=== PATIENT | male | born 1955 | race Asian ===

== ENCOUNTER 2020-10-10 18:30 | Emergency (ER) | payer OTHER, SELFPAY ==
--- NOTE | ~2020-10-10 | XR_ITS ---
XR chest 2V DATE: 10/10/2020 19:01 INDICATION: Midsternal chest pain for one hour TECHNIQUE: PA and lateral views COMPARISON: None FINDINGS: Normal heart size. Aortic arch calcification and mild aortic unfolding. No hilar or mediast inal enlargement. No pulmonary infiltrate or consolidation, pleural effusion or pulmonary vascular congestion or pneumo thorax. Diffuse osteopenia. Mild degenerative spurring of the thoracic spine. IMPRESSION: No active cardiopulmonary disease Aortic atherosclerosis Reviewed, dictated and finalized at location A.
--- NOTE | 2020-10-10 18:39 | ECG_ITS ---
Measurements Intervals [place] Rate: 74 P: 44 AL: 150 QRS: 5 QRSD: 84 T: 46 QT: 374 QTc: 416 Interpretive Statements SINUS RHYTHM INCOMPLETE RIGHT BUNDLE BRANCH BLOCK MINIMAL Q WAVES- HIGH LATERAL LEADS BORDERLINE ECG Electronically Signed On 10-10-2020 19:40:30 CDT by Bay Guillen D.O.
[2020-10-10 18:49] VITALS: BP 122/61; PULSE 74; RESP 18; TEMP 36.9; O2SAT 99
[2020-10-10 19:02] LABS: Basophils Percent Auto 0.5 % (0.2-1.2); Eosinophils Absolute Auto 0.2 K/mm3 (0-0.3); Eosinophils Percent Auto 2.8 % (0-4.4); Hematocrit 39.2 % (42.0-52.0); Hemoglobin 12.4 g/dL (14.0-18.0); Immature Granulocyte Absolute 0.02 K/mm3 (0.00-0.031); Immature Granulocyte Percent A 0.3 % (0-0.5); Lymphocytes Absolute Auto 2.73 K/mm3 (0.9-3.2); Lymphocytes Percent Auto 35.2 % (18.3-44.2); Mean Corpuscular HGB Conc 31.6 g/dl (32-36); Mean Corpuscular Hemoglobin 26.2 pg (26-34); Mean Corpuscular Volume 82.7 fl (80-100); Mean Platelet Volume 9.4 fl (7.4-10.4); Monocytes Absolute Auto 0.7 K/mm3 (0.1-0.6); Monocytes Percent Auto 9.1 % (2.6-8.5); Neutrophils Percent Auto 52.1 % (45.5-73.1); Platelet Count Result 268 k/mm3 (150-375); Red Blood Count 4.74 M/mm3 (4.6-6.20); Red Cell Distribution Width 15.3 % (11.5-14.5); White Blood Count 7.8 K/mm3 (4.5-10.0)
[2020-10-10 19:12] LABS: Anion Gap 10 mmol/L (8-16); Blood Urea Nitrogen 18 mg/dL (9-20); Calcium 9.3 mg/dL (8.4-10.2); Carbon Dioxide 24 mmol/L (22-30); Chloride 103 mmol/L (98-107); Estimated CRCL calculation 82 ml/min; Estimated Glomerular Filt Rate > 60; Glucose 157 mg/dL (75-110); Potassium 4.1 mmol/L (3.4-5.0); Sodium 137 mmol/L (137-145)
[2020-10-10 19:24] LABS: Troponin I < 0.012 ng/mL (0.000-0.034)
[2020-10-10 21:55] VITALS: BP 107/64; PULSE 66; RESP 16; O2SAT 99
[2020-10-10 22:19] LABS: Prothrombin Time 13.5 Seconds (11.1-14.7)
[2020-10-10 22:22] LABS: Alanine Aminotransferase 28 U/L (4-50); Albumin Level 4.5 g/dL (3.5-5.1); Alkaline Phosphatase 78 U/L (38-126); Aspartate Amino Transferase 49 U/L (17-59); Bilirubin,Total 0.3 mg/dL (0.2-1.3); Lipase 235 U/L (23-300)
--- NOTE | 2020-10-10 22:26 | ED.GENADULT ---
HPI - General Adult General Chief complaint: Chest Pain Stated complaint: chest pain Time Seen by Provider: 10/10/20 21:33 History of Present Illness HPI narrative: Patient 65-year-old gentleman who presents the emergency department with chief complaint of chest discomfort. The patient states that he had come home from work was taking a hot shower and reports that he had some heaviness in his mid chest. Patient states that during that time he started salivating denies shortness of breath denied radiation denied back pain patient reports that he does have remote history of a positive stress test that was followed by a cardiac catheterization that showed that he had some slight blockages but this was treated from a medical management standpoint patient states that he has subsequently had a repeat stress test that was actually improved from his previous studies patient states that currently he feels back to normal right now Related Data Allergies Allergy/AdvReac Type Severity Reaction Status Date / Time clopidogrel Allergy Unknown RASH Verified 11/22/18 10:22 Review of Systems Review of Systems: Narrative: A 10 system review of systems was completed on the patient and is negative except for what is stated in the HPI. Nursing and ancillary documentation was reviewed. 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 HEAD: Normocephalic, atraumatic. EYES: PERRLA and EOMI. ENT: Nares clear, no rhinorrhea or epistaxis. Mucous membranes moist. NECK: Supple. CHEST: Clear to auscultation. No respiratory distress. HEART: Regular rate and rhythm. No murmur heard. Normal peripheral pulses. ABDOMEN: Soft, nontender, nondistended, normal active bowel sounds. EXTREMITIES: Normal range of motion. No edema. SKIN: Warm, dry, no rash. NEURO: No focal deficits. Alert and oriented x3. PSYCH: Normal mood and affect. Course Vital Signs Vital signs: Vital Signs Temperature 36.9 C 10/10/20 18:49 Pulse Rate 74 10/10/20 18:49 Respiratory Rate 18 10/10/20 18:49 Blood Pressure 122/61 10/10/20 18:49 Pulse Oximetry 99 10/10/20 18:49 Temperature 36.9 C 10/10/20 18:49 Pulse Rate 66 10/10/20 21:55 Respiratory Rate 16 10/10/20 21:55 Blood Pressure 107/64 10/10/20 21:55 Pulse Oximetry 99 10/10/20 21:55 Medical Decision Making Vital Signs Vital Signs: Vital Signs Temperature 36.9 C 10/10/20 18:49 Pulse Rate 74 10/10/20 18:49 Respiratory Rate 18 10/10/20 18:49 Blood Pressure 122/61 10/10/20 18:49 Pulse Oximetry 99 10/10/20 18:49 Temperature 36.9 C 10/10/20 18:49 Pulse Rate 66 10/10/20 21:55 Respiratory Rate 16 10/10/20 21:55 Blood Pressure 107/64 10/10/20 21:55 Pulse Oximetry 99 10/10/20 21:55 Lab Data Result diagrams: 10/10/20 18:55 10/10/20 18:55 Labs: Lab Results 10/10/20 10/10/20 10/10/20 Range/Units 18:55 18:55 21:59 WBC 7.8 (4.5-10.0) K/mm3 RBC 4.74 (4.6-6.20) M/mm3 Hgb 12.4 L (14.0-18.0) g/dL Hct 39.2 L (42.0-52.0) % MCV 82.7 (80-100) fl MCH 26.2 (26-34) pg MCHC 31.6 L (32-36) g/dl RDW 15.3 H (11.5-14.5) % Plt Count 268 (150-375) k/mm3 MPV 9.4 (7.4-10.4) fl Immature Gran % (Auto) 0.3 (0-0.5) % Neut % (Auto) 52.1 (45.5-73.1) % Lymph % (Auto) 35.2 (18.3-44.2) % [place] % (Auto) 9.1 H (2.6-8.5) % Eos % (Auto) 2.8 (0-4.4) % Baso % (Auto) 0.5 (0.2-1.2) % Lymph # (Auto) 2.73 (0.9-3.2) K/mm3 [place] # (Auto) 0.7 H (0.1-0.6) K/mm3 Eos # (Auto) 0.2 (0-0.3) K/mm3 Baso # (Auto) 0.0 (0.0-0.1) K/mm3 Abs Imm
[2020-10-10 22:31] LABS: Troponin I < 0.012 ng/mL (0.000-0.034)
[2020-10-10 22:45] VITALS: BP 115/65; PULSE 78; RESP 16; O2SAT 98
== END 2020-10-10 22:45 | disposition home or self-care (01) ==
PROVIDERS: Family Medicine; Emergency Provider Emergency Medicine
DX: R07.89 Other chest pain (principal); I25.10 Atherosclerotic heart disease of native coronary artery without angina pectoris; I45.10 Unspecified right bundle-branch block
CPT/HCPCS: 36415; 71046; 80048; 80076; 83690; 84484; 85025; 85610; 85730; 93005; 99284

== ENCOUNTER 2021-11-30 13:52 | Observation (INO) | payer OTHER, SELFPAY ==
[2021-11-30] VITALS (23 sets, daily range): BP systolic 94–139; BP diastolic 58–76; PULSE 66–93; RESP 12–20; TEMP 36.1–36.2; O2SAT 99–100; BMI 22.1; BMI 22.2
--- NOTE | ~2021-11-30 | XR_ITS ---
EXAMINATION: XR chest 2V Exam Date/Time: 11/30/2021 14:30 CDT HISTORY: chest pain Comparison: 10/10/2020. RESULT: Lines, tubes, and devices: None. Lungs and pleura: Clear. Cardiomediastinal silhouette: Stable. Other: No acute osseous or upper abdominal finding. IMPRESSION: No acute cardiopulmonary process. Reviewed, dictated and finalized at location K.
--- NOTE | ~2021-11-30 | NM_ITS ---
EXAMINATION: NM akin stress w perfusion DATE: 12/02/2021 12:22 INDICATION: Chest pain. TECHNIQUE: Rest images were obtained following intravenous administration of 10.3 mCi Tc99m tetrofosm in (Myoview). The patient was infused intravenously with Lexiscan (regadenoson). Then, 33.9 mCi Tc99m tetrofosmin (Myoview) was administered intravenously, and stress images were obtained. Data was albina nstructed into short axis and horizontal and vertical long axis SPECT images. Gated SPECT images were also obtained. COMPARISON: CT abdomen and pelvis 10/30/2018 FINDINGS: There is no definite reversible or fixed perfusion abnormality to suggest ischemia or infar ction. There is no segmental wall motion abnormality. Left ventricular ejection fraction measures > 70%. IMPRESSION: 1. No definite ischemia or infarct. 2. Normal left ventricular ejection fraction measuring >70%. Reviewed, dictated and finalized at location A.
--- NOTE | 2021-11-30 13:53 | ECG_ITS ---
Measurements Intervals [employer] Rate: 85 P: 52 UT: 140 QRS: 22 QRSD: 88 T: 60 QT: 355 QTc: 422 Interpretive Statements SINUS RHYTHM MINOR ST SEGMENT ABNORMALITY NO PREVIOUS ECG AVAILABLE FOR COMPARISON Electronically Signed On 12-01-2021 8:17:39 CDT by Damian Hansen M.D.
[2021-11-30 14:17] LABS: Basophils Percent Auto 0.5 % (0.2-1.2); Eosinophils Absolute Auto 0.1 K/mm3 (0-0.3); Eosinophils Percent Auto 1.7 % (0-4.4); Hematocrit 37.8 % (42.0-52.0); Immature Granulocyte Absolute 0.02 K/mm3 (0.00-0.031); Immature Granulocyte Percent A 0.3 % (0-0.5); Lymphocytes Absolute Auto 2.14 K/mm3 (0.9-3.2); Lymphocytes Percent Auto 32.5 % (18.3-44.2); Mean Corpuscular HGB Conc 31.7 g/dl (32-36); Mean Corpuscular Hemoglobin 27.4 pg (26-34); Mean Corpuscular Volume 86.3 fl (80-100); Mean Platelet Volume 8.9 fl (7.4-10.4); Monocytes Absolute Auto 0.8 K/mm3 (0.1-0.6); Monocytes Percent Auto 12.7 % (2.6-8.5); Neutrophils Absolute Auto 3.5 K/mm3 (1.3-6.7); Neutrophils Percent Auto 52.3 % (45.5-73.1); Platelet Count Result 327 k/mm3 (150-375); Red Blood Count 4.38 M/mm3 (4.6-6.20); Red Cell Distribution Width 13.8 % (11.5-14.5); White Blood Count 6.6 K/mm3 (4.5-10.0)
[2021-11-30 14:27] LABS: INR 1.1; Prothrombin Time 13.6 Seconds (11.1-14.7)
[2021-11-30 14:28] LABS: Alanine Aminotransferase 20 U/L (6-50); Albumin Level 4.3 g/dL (3.5-5.1); Alkaline Phosphatase 90 U/L (38-126); Anion Gap 10 mmol/L (8-16); Aspartate Amino Transferase 22 U/L (17-59); Bilirubin,Total 0.5 mg/dL (0.2-1.3); Blood Urea Nitrogen 11 mg/dL (9-20); Calcium 9.3 mg/dL (8.4-10.2); Carbon Dioxide 26 mmol/L (22-30); Chloride 102 mmol/L (98-107); Estimated CRCL calculation 72 ml/min; Estimated Glomerular Filt Rate > 60; Glucose 134 mg/dL (65-110); Lipase 242 U/L (23-300); Partial Thromboplastin Time 30.8 SECONDS (22.3-36.8); Potassium 3.9 mmol/L (3.4-5.0); Sodium 138 mmol/L (137-145)
[2021-11-30 14:37] LABS: Troponin I < 0.012 ng/mL (0.000-0.034)
--- NOTE | 2021-11-30 15:08 | ED.GENADULT ---
HPI - General Adult General Chief complaint: Chest Pain Stated complaint: chest pain Time Seen by Provider: 11/30/21 14:01 History of Present Illness HPI narrative: 66-year-old male with a past medical history of CAD, DM 2, dyslipidemia, HTN presents to our department with exertional chest pain and pressure. Patient states that when he walked up the stairs this morning he began to feel pain and pressure substernally and in his anterior chest wall. There was only modest improvement when he sat down to rest and he still feels a 2 out of 10 pain at the time of my evaluation. Patient had a positive stress test and positive cardiac cath in 2005. He subsequently had a second cath in 2014 which was normal and he feels that collateral circulation improved the CAD he initially was diagnosed with he has not had any further provocative testing for the past 6 years. Related Data Home Medications Medication Instructions Recorded Confirmed amlodipine 10 mg tablet 10 mg PO QPM 12/26/20 12/01/21 aspirin 81 mg tablet,delayed 81 mg PO QPM 12/26/20 12/01/21 release atorvastatin 40 mg tablet 40 mg PO QPM 12/26/20 12/01/21 famotidine 40 mg tablet 40 mg PO DAILY 12/26/20 11/30/21 magnesium 250 mg tablet 250 mg PO DAILY 12/26/20 11/30/21 Allergies Allergy/AdvReac Type Severity Reaction Status Date / Time clopidogrel [From Plavix] Allergy Rash Verified 11/30/21 17:38 Review of Systems Review of Systems: CONSTITUTIONAL: Denies fever, chills, or sweats. EYES: Denies visual changes, redness, or discharge. ENT: Denies rhinorrhea, congestion, sore throat, or otalgia. CARDIOVASCULAR: Denies chest pain, palpitations, or edema. RESPIRATORY: Denies cough or dyspnea. GASTROINTESTINAL: Denies abdominal pain, nausea, vomiting, or diarrhea. GENITOURINARY: Denies dysuria or hematuria. SKIN: Denies rash or itching. MUSCULOSKELETAL: Denies back pain, joint pain, or myalgia. NEUROLOGIC: Denies headache, numbness, or weakness. PSYCHIATRIC: Denies anxiety or depression. [facility] Past Medical History Medical History (Updated 11/30/21 @ 22:02 by Romi Kimbrough PA-C) Chronic anemia Coronary artery disease Stress echo in 2005 showed a small area of hypokinesis. Subsequent cardiac catheterization showed 85% stenosis of a terminal branch which was treated with aggressive medical management. Dyslipidemia Gastroesophageal reflux disease Hypertension Type 2 diabetes mellitus Surgical History Surgical History (Updated 11/30/21 @ 22:09 by Romi Kimbrough PA-C) History of cardiac catheterization (2005) History of colonoscopy with polypectomy History of esophagogastroduodenoscopy Status post scrotal varicocelectomy Family History Family History Sibling Diabetes mellitus Renal cell cancer Sibling History of angioplasty Cerebrovascular accident Father Sudden Social History Social History Social History: Surrogate medical decision maker: Perla Alamo, spouse. Code status: Full code. Smoking status: Never smoker Second hand tobacco smoke exposure: Yes Alcohol intake: never Substance use: never Additional living arrangements comments: Lives in [place] with spouse and children. 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 care concerns: No Exam Narrative: GENERAL: Well-appearing, well-nourished, and in no acute distress. HEAD: Normocephalic, atraumatic. EYES: PERRLA and EOMI. ENT: Nares clear, no rhinorrhea or epistaxis. Mucous membranes moist. NECK: Supple. CHEST: Clear to auscultation. No respiratory distress. HEART: Regular rate and rhythm. No murmur heard. Normal peripheral pulses. ABDOMEN: Soft, nontender, nondistended, normal active bowel sounds. EXTREMITIES: Normal range of motion. No edema. SKIN: Warm, dry, no rash. NEURO: No focal deficits. Alert and oriented x3. P
[2021-11-30] MEDS: ASPIRIN 81 MG CHEWABLE TABLET 324 MG PO (15:18)
[2021-11-30] MEDS: NITROGLYCERIN SL 0.4 MG TABLET SUBLINGUAL (15:19)
--- NOTE | 2021-11-30 15:29 | PC.NURSE ---
pt received Nitro 0.4 x1 denied CP
--- NOTE | 2021-11-30 16:19 | ECG_ITS ---
Measurements Intervals [place] Rate: 81 P: 37 WI: 144 QRS: 5 QRSD: 83 T: 44 QT: 364 QTc: 425 Interpretive Statements SINUS RHYTHM NORMAL ECG COMPARED TO ECG 11/30/2021 13:59:33 NO SIGNIFICANT CHANGES Electronically Signed On 12-02-2021 14:06:16 CDT by Damian Hansen M.D.
--- NOTE | 2021-11-30 16:25 | PM.IMHP ---
H&P: HPI History of Present Illness Date/Time: 11/30/21 16:25 Chief Complaint: Chest pain. 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 Not long prior to arrival while walking up a flight of steps he developed nonradiating, pressure-like discomfort in the middle part of his chest which intensified when walking up a subsequent set of steps about 5 minutes later. He rates the pain 6-7/10 and it resolved after receiving 1 sublingual nitroglycerin tablet in the emergency department. He denies significant associated symptoms, specifically denying dizziness, sweats, nausea, vomiting, and shortness of breath. At the time my evaluation he is resting comfortably and has no active discomfort. He had an abnormal stress echo in 2005 which showed a small area of hypokinesis for which he had a cardiac catheterization which showed small-vessel disease with 85% stenosis of a terminal branch which was treated with medical management. A repeat stress echo several years thereafter showed no wall motion abnormalities and he has not had any issues since that time, before today. Review of Systems Review of Systems: Twelve systems were reviewed. No recent cold or flu symptoms. No syncope or presyncope. Heart was racing a little bit when he developed his pain but he does note feeling a bit anxious when that occurred. He denies pleuritic pain and shortness of breath. No nausea, vomiting, or sweats. No lower extremity edema. diabetes is well controlled with the last hemoglobin A1c being less than 6.5%. Except as documented, all other systems were reviewed and are negative. [facility] Past Medical History Medical History (Updated 11/30/21 @ 22:02 by Romi Kimbrough PA-C) Chronic anemia Coronary artery disease Stress echo in 2005 showed a small area of hypokinesis. Subsequent cardiac catheterization showed 85% stenosis of a terminal branch which was treated with aggressive medical management. Dyslipidemia Gastroesophageal reflux disease Hypertension Type 2 diabetes mellitus Surgical History Surgical History (Updated 11/30/21 @ 22:09 by Romi Kimbrough PA-C) History of cardiac catheterization (2005) History of colonoscopy with polypectomy History of esophagogastroduodenoscopy Status post scrotal varicocelectomy Family History Family History Sibling Diabetes mellitus Renal cell cancer Sibling History of angioplasty Cerebrovascular accident Father Sudden Social History Social History Social History: Surrogate medical decision maker: Perla Alamo, spouse. Code status: Full code. Smoking status: Never smoker Second hand tobacco smoke exposure: Yes Alcohol intake: never Substance use: never Additional living arrangements comments: Lives in [place] with spouse and children. 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 care concerns: No Meds Home Medications and Allergies Home Medications Medication Instructions Recorded Confirmed Type amlodipine 10 mg tablet 10 mg PO DAILY 12/26/20 11/30/21 History aspirin 81 mg tablet,delayed 81 mg PO DAILY 12/26/20 11/30/21 History release atorvastatin 40 mg tablet 40 mg PO DAILY 12/26/20 11/30/21 History famotidine 40 mg tablet 40 mg PO DAILY 12/26/20 11/30/21 History magnesium 250 mg tablet 250 mg PO DAILY 12/26/20 11/30/21 History metformin 500 mg tablet 500 mg PO BID #1 tablet 12/26/20 11/30/21 Rx metoprolol succinate 25 mg 25 mg PO DAILY #1 tablet 12/26/20 11/30/21 Rx tablet,extended release 24 hr Allergies Allergy/AdvReac Type Severity Reaction Status Date / Time clopidogrel [From Plavix] Allergy Rash Verified 11/30/21 17:3
[2021-11-30 16:34] LABS: SARS-CoV-2 RNA PCR Negative
[2021-11-30 17:26] LABS: Troponin I < 0.012 ng/mL (0.000-0.034)
--- NOTE | 2021-11-30 17:30 | ADMGEN ---
This patient, John Alamo, was admitted to IMU Room 214-01. Patient/family oriented to hospital policies and general routines including ID bracelet, bed and alarms, visiting hours, pain management, procedures, bathroom and other care routines, personal items, smoking policy, room service/diet, and visiting hours. Information on how to activate the Rapid Response Team has been discussed. Patient/Family are encouraged to report perceived risks to care and to ask questions if they do not understand what they are told or what they should do.
[2021-11-30 20:09] LABS: Troponin I < 0.012 ng/mL (0.000-0.034)
[2021-11-30 23:27] LABS: Troponin I < 0.012 ng/mL (0.000-0.034)
[2021-12-01] VITALS (17 sets, daily range): BP systolic 89–108; BP diastolic 55–75; PULSE 61–85; RESP 16–20; TEMP 36.1–36.8; O2SAT 96–100
[2021-12-01 05:09] LABS: Hematocrit 35.7 % (42.0-52.0); Hemoglobin 10.9 g/dL (14.0-18.0); Mean Corpuscular HGB Conc 30.5 g/dl (32-36); Mean Corpuscular Hemoglobin 26.8 pg (26-34); Mean Corpuscular Volume 87.7 fl (80-100); Mean Platelet Volume 9.1 fl (7.4-10.4); Platelet Count Result 280 k/mm3 (150-375); Red Blood Count 4.07 M/mm3 (4.6-6.20); Red Cell Distribution Width 13.8 % (11.5-14.5); White Blood Count 6.7 K/mm3 (4.5-10.0)
[2021-12-01 05:12] LABS: Anion Gap 8 mmol/L (8-16); Blood Urea Nitrogen 12 mg/dL (9-20); Calcium 8.8 mg/dL (8.4-10.2); Carbon Dioxide 25 mmol/L (22-30); Chloride 104 mmol/L (98-107); Estimated CRCL calculation 79 ml/min; Estimated Glomerular Filt Rate > 60; Glucose 94 mg/dL (65-110); Magnesium 2.1 mg/dL (1.6-2.3); Potassium 3.9 mmol/L (3.4-5.0); Sodium 137 mmol/L (137-145)
[2021-12-01] MEDS: ENOXAPARIN 40 MG/0.4 ML SYRINGE SUB-Q (09:26)
[2021-12-01] MEDS: ASPIRIN 81 MG ENTERIC TABLET PO ×2 (09:27→16:56)
[2021-12-01] MEDS: amLODIPine BESYLATE 5 MG TABLET 10 MG PO ×2 (09:27→16:55)
[2021-12-01] MEDS: METOPROLOL SUCCINATE EXT REL 25 MG TABCR PO (09:27)
[2021-12-01] MEDS: ATORVASTATIN 40 MG TABLET PO ×2 (09:27→16:56)
[2021-12-01] MEDS: MAGNESIUM 13.5 MG TABLET (250 MG MAG GLUCONATE) PO (09:27)
[2021-12-01] MEDS: metFORMIN HCL 500 MG TABLET PO (09:27)
[2021-12-01] MEDS: FAMOTIDINE 20 MG TABLET 40 MG PO (09:27)
--- NOTE | 2021-12-01 17:00 | PM.IMPN ---
Progress Note: A&P Assessment and Plan (1) Chest pain: Code(s): R07.9 - Chest pain, unspecified Status: Acute Assessment and Plan: He was given aspirin 324 mg in the ED and his pain was relieved with sublingual nitroglycerin x1. History is concerning for angina and he is thus being admitted for close monitoring and cardiology consultation. Troponins will be trended. Continue aspirin, statin, and beta-jevon. 12/01/2021 interval history: patient 4 sets of cardiac enzymes are negative and there is no acute changing on EKG patient remains clinically stable is no complaint of chest pain currently, to further evaluate will do the cardiac echo and Lexiscan, and further recommendation to follow. patient is currently taking metoprolol, aspirin and Lipitor. (2) Essential hypertension: Code(s): I10 - Essential (primary) hypertension Status: Acute Assessment and Plan: Blood pressures were reviewed and they are stable. Continue antihypertensives and monitor closely. (3) Dyslipidemia: Code(s): E78.5 - Hyperlipidemia, unspecified Status: Acute Assessment and Plan: Continue statin; LFTs within normal limits. (4) Chronic anemia: Code(s): D64.9 - Anemia, unspecified Status: Acute Assessment and Plan: Hemoglobin and hematocrit are stable on review of previous labs. 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 Not long prior to arrival while walking up a flight of steps he developed nonradiating, pressure-like discomfort in the middle part of his chest which intensified when walking up a subsequent set of steps about 5 minutes later. He rates the pain 6-7/10 and it resolved after receiving 1 sublingual nitroglycerin tablet in the emergency department. He denies significant associated symptoms, specifically denying dizziness, sweats, nausea, vomiting, and shortness of breath. At the time my evaluation he is resting comfortably and has no active discomfort. He had an abnormal stress echo in 2005 which showed a small area of hypokinesis for which he had a cardiac catheterization which showed small-vessel disease with 85% stenosis of a terminal branch which was treated with medical management. A repeat stress echo several years thereafter showed no wall motion abnormalities and he has not had any issues since that time, before today. 12/01/2021 interval history: patient 4 sets of cardiac enzymes are negative and there is no acute changing on EKG patient remains clinically stable is no complaint of chest pain currently, to further evaluate will do the cardiac echo and Lexiscan, and further recommendation to follow. patient is currently taking metoprolol, aspirin and Lipitor. Review of Systems Review of Systems: Twelve systems were reviewed. No recent cold or flu symptoms. No syncope or presyncope. Heart was racing a little bit when he developed his pain but he does note feeling a bit anxious when that occurred. He denies pleuritic pain and shortness of breath. No nausea, vomiting, or sweats. No lower extremity edema. diabetes is well controlled with the last hemoglobin A1c being less than 6.5%. Except as documented, all other systems were reviewed and are negative. Exam Narrative: Patient is comfortable, NAD HEENT: eyes are clear and none icteric LUNGS: normal respiratory effort ABD: not distended Lower extremities: no edema SKIN: nonjaundiced Neuro: grossly intact. Objective Data Vital Signs Vital Signs: Vital Signs - 24 hr 11/30/21 17:34 11/30/21 18:00 11/30/21 18:49 Temperature 97.0 F L Pulse Rate 83 86 Respiratory Rate 18 Blood Pressure 94/61 L Pulse Oximetry 100 Oxygen Delivery Room Air 11/30/21 20:0
[2021-12-02] VITALS (9 sets, daily range): BP systolic 90–106; BP diastolic 56–62; PULSE 68–91; RESP 16–20; TEMP 36.2–36.7; O2SAT 96–100
--- NOTE | 2021-12-02 | ECHO_ITS ---
Patient Info Name: John Alamo Age: 66 years : 1955 Gender: Male Ht: 67 in Wt: 141 lbs BSA: 1.74 m2 HR: 71 bpm BP: 90 / 56 mmHg Heart Rhythm: Sinus Rhythm Exam Date: 12/02/2021 9:09 AM Exam Location: [facility] Patient Status: Inpatient Admit Date: 11/30/2021 Staff Ordering Physician: Beckie Frey MD Logistics Assistant: Jani Saab, ANY, RT Attending Provider: Waleska Stephen DO Exam Type: CA echo doppler color flow Study Info Indications R07.9 - Chest pain, unspecified Complete two-dimensional, color flow and Doppler transthoracic echocardiogram is performed. Strain analysis performed. Summary 1. Complete two-dimensional, color flow and Doppler transthoracic echocardiogram is performed. 2. Normal left ventricular size, thickness and vigorous systolic contractility. 3. Grade 1 diastolic noncompliance. 4. No valvular dysfunction. Left Ventricle Left ventricular chamber dimension is normal. Left ventricular systolic function is normal, estimated at 65-70%. The left ventricular diastolic function is grade I diastolic dysfunction. Right Ventricle Right ventricular chamber dimension is normal. Left Atria Left atrial chamber dimension is normal. Right Atria Right atrial chamber dimension is normal. Aortic Valve The aortic valve is normal. Pulmonic Valve The pulmonic valve is normal. Mitral Valve The mitral valve has normal leaflets. Tricuspid Valve The tricuspid valve leaflets are normal. Pericardium/Pleural The pericardium appears normal. Aorta The aortic root size at the sinus of Valsalva is normal. Left Ventricular Outflow Tract Name Value Normal LVOT 2D LVOT Diameter 2.0 cm LVOT Doppler LVOT Peak Gradient 3 mmHg LVOT Mean Gradient 1 mmHg LVOT VTI 16 cm LVOT VTI/AV VTI Ratio 0.6 LVOT Stroke Volume 52 ml LVOT CO 4.1 l/min LVOT CI 2.3 l/min/m2 Mitral Valve Name Value Normal MV Doppler MV Decel [place] 261 cm/s2 MV PHT 59 ms MV Area (PHT) 3.7 cm2 4.0-5.0 MV Diastolic Function MV E Peak Velocity 53 cm/s MV A Peak Velocity 81 cm/s MV E/A 0.7 MV Decel Time 203 ms MV Annular TDI MV E/e' (Septal) 8.9 <=8.0 MV E/e' (Lateral) 5.3 <=8.0 MV E/e' (Average)
[2021-12-02 05:31] LABS: Hematocrit 35.5 % (42.0-52.0); Mean Corpuscular Hemoglobin 26.8 pg (26-34); Mean Corpuscular Volume 86.4 fl (80-100); Mean Platelet Volume 9.2 fl (7.4-10.4); Platelet Count Result 304 k/mm3 (150-375); Red Blood Count 4.11 M/mm3 (4.6-6.20); Red Cell Distribution Width 13.8 % (11.5-14.5); White Blood Count 7.1 K/mm3 (4.5-10.0)
[2021-12-02 05:37] LABS: Alanine Aminotransferase 17 U/L (6-50); Alkaline Phosphatase 74 U/L (38-126); Anion Gap 9 mmol/L (8-16); Aspartate Amino Transferase 20 U/L (17-59); Bilirubin,Total 0.4 mg/dL (0.2-1.3); Blood Urea Nitrogen 13 mg/dL (9-20); Calcium 8.7 mg/dL (8.4-10.2); Carbon Dioxide 27 mmol/L (22-30); Chloride 105 mmol/L (98-107); Cholesterol 121 mg/dL (0-200); Estimated CRCL calculation 71 ml/min; Estimated Glomerular Filt Rate > 60; Glucose 101 mg/dL (65-110); HDL Direct 35 mg/dL; Magnesium 2.1 mg/dL (1.6-2.3); Potassium 4.4 mmol/L (3.4-5.0); Sodium 141 mmol/L (137-145); Triglycerides 81 mg/dL (<150)
[2021-12-02 05:48] LABS: LDL Cholesterol Direct 52 mg/dL
--- NOTE | 2021-12-02 09:24 | EST_ITS ---
Patient Info Name: John Almao Age: 66 years : 1955 Gender: Male Ht: 67 in Wt: 141 lbs BSA: 1.74 m2 Exam Date: 12/02/2021 11:15 AM Exam Location: [facility] Patient Status: Inpatient Admit Date: 11/30/2021 Staff Ordering Physician: Beckie Frey MD Attending Provider: Waleska Stephen DO Exercise Technologist: Holly Bryant RDCS Nurse: ALEC MORALES NP Exam Type: CA stress akin w NM Study Info A regadenoson stress test was performed. Summary 1. Normal sinus rhythm - normal ECG. 2. No abnormal ST/T wave changes with exercise. 3. Clinically and electrocardiographically uneventful Lexiscan stress test. 4. Myocardial perfusion imaging exam to be dictated by Radiology. Protocol: Lexiscan Stress ECG Details Stage: REST Duration (min): 5 min : 26 sec HR (bpm): 70 SBP (mmHg): 120 DBP (mmHg): 69 Stage: REST Duration (min): 8 min : 21 sec HR (bpm): 80 SBP (mmHg): 120 DBP (mmHg): 69 Stage: STAGE 1 Duration (min): 1 min : 0 sec HR (bpm): 103 SBP (mmHg): 118 DBP (mmHg): 75 Stage: RECOVERY Duration (min): 1 min : 0 sec HR (bpm): 103 SBP (mmHg): 112 DBP (mmHg): 64 Stage: RECOVERY Duration (min): 2 min : 0 sec HR (bpm): 98 SBP (mmHg): 112 DBP (mmHg): 64 Stage: RECOVERY Duration (min): 3 min : 0 sec HR (bpm): 95 SBP (mmHg): 111 DBP (mmHg): 62 Stage: RECOVERY Duration (min): 4 min : 0 sec HR (bpm): 93 SBP (mmHg): 111 DBP (mmHg): 62 Stage: RECOVERY Duration (min): 5 min : 0 sec HR (bpm): 93 SBP (mmHg): 111 DBP (mmHg): 61 Stage: RECOVERY Duration (min): 5 min : 39 sec HR (bpm): 91 SBP (mmHg): 111 DBP (mmHg): 61 Rest HR: 80 bpm Peak HR: 105 bpm Rest Sys BP: 120 mmHg Peak Sys BP: 118 mmHg Max Pred HR: 152 bpm % Max Pred HR: 69 % Target HR: 129 bpm Max RPP: 12,390 bpm*mmHg Termination Reason: Completed protocol Cardiac Symptoms: None Total Time: 1 min : 0 sec Rest Ashraf BP: 69 mmHg Peak Ashraf BP: 75 mmHg Total Dose: 0.4 mg Resting ECG Normal sinus rhythm - normal ECG. Stress ECG No abnormal ST/T wave changes with exercise. Report Signatures
[2021-12-02] MEDS: FAMOTIDINE 20 MG TABLET 40 MG PO (10:20)
[2021-12-02] MEDS: ENOXAPARIN 40 MG/0.4 ML SYRINGE SUB-Q (12:32)
[2021-12-02] MEDS: METOPROLOL SUCCINATE EXT REL 25 MG TABCR PO (12:33)
[2021-12-02] MEDS: MAGNESIUM 13.5 MG TABLET (250 MG MAG GLUCONATE) PO (12:33)
--- NOTE | 2021-12-02 15:43 | PM.DS ---
DS: Admitting Diagnosis Discharge Date 12/02/2021 Admitting Diagnosis chest pain DS: Discharge Diagnosis Discharge Diagnosis (1) Chest pain: Code(s): R07.9 - Chest pain, unspecified Status: Acute Assessment and Plan: He was given aspirin 324 mg in the ED and his pain was relieved with sublingual nitroglycerin x1. History is concerning for angina and he is thus being admitted for close monitoring and cardiology consultation. Troponins will be trended. Continue aspirin, statin, and beta-jevon. 12/01/2021 interval history: patient 4 sets of cardiac enzymes are negative and there is no acute changing on EKG patient remains clinically stable is no complaint of chest pain currently, to further evaluate will do the cardiac echo and Lexiscan, and further recommendation to follow. patient is currently taking metoprolol, aspirin and Lipitor. (2) Essential hypertension: Code(s): I10 - Essential (primary) hypertension Status: Acute Assessment and Plan: Blood pressures were reviewed and they are stable. Continue antihypertensives and monitor closely. (3) Dyslipidemia: Code(s): E78.5 - Hyperlipidemia, unspecified Status: Acute Assessment and Plan: Continue statin; LFTs within normal limits. (4) Chronic anemia: Code(s): D64.9 - Anemia, unspecified Status: Acute Assessment and Plan: Hemoglobin and hematocrit are stable on review of previous labs. DS: Summary Hospital Course Reason for hospitalization: Chest pain. 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 Not long prior to arrival while walking up a flight of steps he developed nonradiating, pressure-like discomfort in the middle part of his chest which intensified when walking up a subsequent set of steps about 5 minutes later. He rates the pain 6-7/10 and it resolved after receiving 1 sublingual nitroglycerin tablet in the emergency department. He denies significant associated symptoms, specifically denying dizziness, sweats, nausea, vomiting, and shortness of breath. At the time my evaluation he is resting comfortably and has no active discomfort. He had an abnormal stress echo in 2005 which showed a small area of hypokinesis for which he had a cardiac catheterization which showed small-vessel disease with 85% stenosis of a terminal branch which was treated with medical management. A repeat stress echo several years thereafter showed no wall motion abnormalities and he has not had any issues since that time, before today. Hospital Course: patient 4 sets of cardiac enzymes are negative and there is no acute changing on EKG patient remains clinically stable is no complaint of chest pain currently, to further evaluate will do the cardiac echo and Lexiscan, and further recommendation to follow.? patient is currently taking metoprolol, aspirin and Lipitor. patient remains clinically stable his chest pain has resolved, Lexiscan is normal without any ischemia, cardiac echo showed normal ejection fraction with grade 1 diastolic dysfunction, patient instructed follow-up with his primary care provider as soon as possible, if any symptoms redeveloped to go to nearest emergency department Time Spent with Patient Time attestation: Total time spent providing and/or coordinating discharge services: Exam Narrative: Patient is comfortable, NAD HEENT: eyes are clear and none icteric LUNGS: normal respiratory effort ABD: not distended Lower extremities: no edema SKIN: nonjaundiced Neuro: grossly intact. DS: Data Data Completed and Pending Labs on day of discharge: Labs from last 24 hours 12/02/21 12/02/21 12/02/21 04:55 04:55 04:55 WBC 7.1 RBC 4.11 L Hgb 11.0 L Hct 35.5 L MCV 86.
== END 2021-12-02 16:30 | disposition home or self-care (01) ==
LOC: ANHED 14:15 → ANHIMU 17:06
PROVIDERS: Emergency Medicine; Physician Assistant; Admitting Provider Student in an Organized Health Care Education/Training Program; Emergency Provider Emergency Medicine; Visit Provider Family Medicine
DX: R07.9 Chest pain, unspecified (principal); I10 Essential (primary) hypertension; E78.5 Hyperlipidemia, unspecified; D64.9 Anemia, unspecified; I25.10 Atherosclerotic heart disease of native coronary artery without angina pectoris; E11.9 Type 2 diabetes mellitus without complications; K21.9 Gastro-esophageal reflux disease without esophagitis; I67.89 Other cerebrovascular disease; Z20.822 Contact with and (suspected) exposure to COVID-19; Z83.3 Family history of diabetes mellitus; Z82.3 Family history of stroke; Z87.891 Personal history of nicotine dependence; Z79.82 Long term (current) use of aspirin; Z79.899 Other long term (current) drug therapy
CPT/HCPCS: 36415; 71046; 78452; 80048; 80053; 80061; 83036; 83690; 83735; 84443; 84484; 85025; 85027; 85610; 85730; 93005; 93017; 93306; 96372; 99285; A9270; A9502; C9803; G0378; J1650; J2785; U0003; U0005